=== PATIENT | male | born 1955 | race Caucasian/White ===

== ENCOUNTER 2021-10-27 06:40 | Outpatient (CLI) | payer OTHER, SELFPAY | END 2021-10-27 06:41 | disposition home or self-care (01) | LOC: INJ CL 06:42 | PROVIDERS: PCP Family Medicine; Visit Provider Family Medicine | DX: M51.36 Other intervertebral disc degeneration, lumbar region (principal); M54.16 Radiculopathy, lumbar region | CPT/HCPCS: 62323; J0702; Q9966 ==

== ENCOUNTER 2022-04-13 06:58 | Outpatient (CLI) | payer OTHER, SELFPAY | END 2022-04-13 06:59 | disposition home or self-care (01) | PROVIDERS: PCP Family Medicine; Visit Provider Family Medicine | DX: M54.16 Radiculopathy, lumbar region (principal); M51.36 Other intervertebral disc degeneration, lumbar region | CPT/HCPCS: 62323; J0702; Q9966 ==

== ENCOUNTER 2022-11-23 06:43 | Outpatient (CLI) | payer OTHER, SELFPAY | END 2022-11-23 06:44 | disposition home or self-care (01) | LOC: INJ CL 06:44 | PROVIDERS: PCP Family Medicine; Visit Provider Family Medicine | DX: M51.36 Other intervertebral disc degeneration, lumbar region (principal); M54.16 Radiculopathy, lumbar region | CPT/HCPCS: 62323; J1100; Q9966 ==